=== PATIENT | female | born 1985 ===

== ENCOUNTER 2016-09-21 17:16 | Emergency (ER) | payer OTHER, SELFPAY ==
[2016-09-21 17:25] VITALS: BP 98/61; PULSE 85; RESP 18; TEMP 98.5; O2SAT 98
--- NOTE | 2016-09-21 18:37 | ED PDOC ---
HPI: Headache Time Seen by Provider: 09/21/16 17:54 Chief Complaint (Nursing): Headache Chief Complaint (Provider): Headache History Per: Patient History/Exam Limitations: no limitations Onset/Duration Of Symptoms: Hrs Current Symptoms Are (Timing): Still Present Additional Complaint(s): 17:54 Donna Mosley is a 31 year old female that presents to the ED with a chief complaint of a headache that began as a direct result of slipping in her bathtub and hitting her head. Patient states that there was no LOC, and that the pain is diffuse in the front of her head, even though she hit the back of her head. Her associated symptoms include nausea and neck pain,and states that "light bothers her." She denies any blurry vision, focal weakness, vision change , fever, neck stiffness, vomiting, difficulty walking, or consumption of alcohol. 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 Past Medical History Reviewed: Historical Data, Nursing Documentation, Vital Signs Vital Signs: Last Vital Signs Temp 98.5 F 09/21/16 17:20 Pulse 85 09/21/16 17:20 Resp 18 09/21/16 17:20 BP 98/61 L 09/21/16 17:20 Pulse Ox 98 09/21/16 17:20 - Surgical History Surgical History: (x3) - Family History Family History: States: Unknown Family Hx - Social History Current smoker - smoking cessation education provided: No - Immunization History Hx Tetanus Toxoid Vaccination: Yes Hx Influenza Vaccination: No Hx Pneumococcal Vaccination: No - Home Medications Home Medications: Ambulatory Orders Medication Instructions Recorded Magnesium Citrate [[facility] 300 ml PO ONCE PRN #1 bottle 02/13/16 Pharmacy Magnesium Citrate] Ibuprofen [Motrin Tab] 600 mg PO Q8 PRN #30 tab 09/21/16 Ondansetron ODT [Zofran ODT] 1 odt PO Q6 PRN #20 odt 09/21/16 - Allergies Allergies/Adverse Reactions: Allergies Allergy/AdvReac Type Severity Reaction Status Date / Time No Known Allergies Allergy Verified 02/13/16 16:30 Review of Systems Constitutional: Negative for: Fever, Other (no difficulty walking) Eyes: Negative for: Vision Change, Other (no focal weakness, no blurry vision) Gastrointestinal: Positive for: Nausea. Negative for: Vomiting Musculoskeletal: Positive for: Neck Pain (positibe neck pain, but no neck stiffness) Neurological: Positive for: Headache. Negative for: Other (no LOC) Physical Exam - Reviewed Nursing Documentation Reviewed: Yes Vital Signs Reviewed: Yes - Physical Exam Appears: Positive for: Non-toxic, In Acute Distress (patient is in moderate painful distress) Head Exam: Positive for: NORMOCEPHALIC. Negative for: ATRAUMATIC (TTP occiput, very subtle swelling. No hematoma or abrasion) Skin: Positive for: Warm, Dry Eye Exam: Positive for: Normal appearance, EOMI, PERRL Neck: Negative for: Normal (diffuse TTP along midline and paraspinal c-spine; no step off) Cardiovascular/Chest: Positive for: Regular Rate, Rhythm. Negative for: Murmur Respiratory: Positive for: Normal Breath Sounds, Other (equal chest rise). Negative for: Respiratory Distress Gastrointestinal/Abdominal: Positive for: Soft. Negative for: Tenderness, Distended Extremity: Positive for: Normal ROM. Negative for: Deformity Neurologic/Psych: Positive for: Alert, hoop cutter II-XII (intact), Oriented (x3), Cerebellar Tests (normal). Negative for: Motor/Sensory Deficits, Aphasia, Facial Droop - ECG O2 Sat by Pulse Oximetry: 98 (RA) Pulse Ox Interpretation: Normal Medical Decision Making Medical Decision Makin:05 Initial Impression: Head Injury, ddx include Traumatic Brain Injury vs. Concussion vs. Contusion Initial Plan: * CT Scan Cervical Spine w/o contrast * CT Scan Head w/o contrast * Urine Preg * Tylenol 975 mg PO * Zofran 4 mg IM * Patient will be given cervical collar * Reevaluation * Accession No. : [id number] Patient Name / ID : DIMITRI BLANC / [id number] Exam Date : 09/21/2016 18:50:00 ( Approved ) Study Comment : Sex / Age : F / 31Y Creator : Alexandrea Shaw MD Dictator : Industrial Designer : Muck Boss : Alexandrea Shaw MD Approver2 : Report Date : 09/21/2016 19:47:00 My Comment : [facility] Division of Radiology [address] [place] [address] Tel. no. Patient Name: DONNA MOSLEY Pt. Address: [address] [place] [address] Rec #: [id number] [place] [address]: Domenic FRAUSTO, Miriam Colin Pt Order Location: [facility] : 1985 Female Age: 31 Order #: [id number] Reason for exam: headache s/p trauma CT Scan HEAD W/O CONTRAST Exam Date: 09/21/16 This imaging exam was performed at [facility] EXAM: CT Head Without Intravenous Contrast CLINICAL HISTORY: 31 years old, female; Pain and injury or trauma; Fall; Initial encounter; Headache; Headache not specified; Additional info: Headache S/P trauma TECHNIQUE: Axial computed tomography images of the head/brain without intravenous contrast. This CT exam was performed using one or more of the following dose reduction techniques: automated exposure control, adjustment of the mA and/or kV according to patient size, and/or use of iterative reconstruction technique. Coronal and sagittal reformatted images were created and reviewed. EXAM DATE/TIME: 09/21/2016 6:04 PM COMPARISON: No relevant prior studies available. FINDINGS: LIMITATIONS: Exam is somewhat limited by mild streak/motion artifact. BRAIN:No significant acute abnormality identified. No acute hemorrhage seen within the brain. No acute extraaxial fluid collections visualized. No evidence of significant intracranial mass effect. Normal vogt-white matter differentiation. VENTRICLES: No evidence of significant hydrocephalus. BONES/JOINTS: No acute fractures or other acute bony abnormality noted. SOFT TISSUES: No acute abnormality of the visualized soft tissues is seen. SINUSES: Visualized paranasal sinuses appear clear. MASTOID AIR CELLS: Mastoid air cells appear clear. IMPRESSION: - No evidence of acute intracranial injury or fractures. - See above for remaining findings. Dictated By: Alexandrea Shaw MD Dictated Date/Time: 09/21/161946 Signed By: Alexandrea Shaw MD Date Signed: 1946 Transcribed By: DEONTE Transcribe Date/Time : 09/21/161946 RMMP02/VRD Accession No. : [id number] Patient Name / ID : DIMITRI BLANC / [id number] Exam Date : 09/21/2016 18:52:37 ( Approved ) Study Comment : Sex / Age : F / 31Y Creator : Alexandrea Shaw MD Dictator : Industrial Designer : Muck Boss : Alexandrea Shaw MD Approver2 : Report Date : 09/21/2016 19:56:00 My Comment : [facility] Division of Radiology [address] [place] [address] Tel. no. Patient Name: DONNA MOSLEY Pt. Address: [address] [place] [address] Rec #: [id number] [place] [address]: Domenic FRAUSTO, Miriam Colin Pt Order Location: [facility] : 1985 Female Age: 31 Order #: [id number] Reason for exam: heada injury and neck pain CT Scan CERVICAL SPINE W/O CONTRAST Exam Date: 09/21/16 This imaging exam was performed at [facility] EXAM: CT Cervical Spine Without Intravenous Contrast CLINICAL HISTORY: 31 years old, female; Injury or trauma; Fall; Initial encounter; Blunt trauma; Additional info: Heada injury and neck pain TECHNIQUE: Axial computed tomography images of the cervical spine without intravenous contrast. This CT exam was performed using one or more of the following dose reduction techniques: automated exposure control, adjustment of the mA and/or kV according to patient size, and/or use of iterative reconstruction technique. Coronal and sagittal reformatted images were created and reviewed. EXAM DATE/TIME: 09/21/2016 6:05 PM COMPARISON: No relevant prior studies available. FINDINGS: VERTEBRAE: No acute cervical spine fractures visualized. No evidence of significant vertebral subluxation. Normal alignment of C1 and C2 and of the facet joints. DISCS/SPINAL CANAL/NEURAL FORAMINA: Mild degenerative disc disease incidentally noted at T3-4. SOFT TISSUES: No acute abnormality of the visualized soft tissues is seen. LUNG APICES: No pneumothorax seen. IMPRESSION: - No acute cervical spine fractures identified. - See above for remaining findings. Dictated By: Alexandrea Shaw MD Dictated Date/Time: 09/21/161955 Signed By: Alexandrea Shaw MD Date Signed: 1955 Transcribed By: DEONTE Transcribe Date/Time : 09/21/161955 RMMP02/VRD Scribe Attestation: Documented by Henrietta Newman, acting as a scribe for Miriam Sheth MD. Provider Scribe Attestation: All medical record entries made by the Scribe were at my direction and personally dictated by me. I have reviewed the chart and agree that the record accurately reflects my personal performance of the history, physical exam, medical decision making, and the department course for this patient. I have also personally directed, reviewed, and agree with the discharge instructions and disposition. Disposition - Clinical Impression Clinical Impression: Concussion, Head injury Counseled Patient/Family Regarding: Studies Performed, Diagnosis, Need For Followup, Rx Given - Disposition Referrals: [facility] [Outside] - 09/24/16 Disposition: Routine/Home Disposition Time: 20:07 Condition: IMPROVED Prescriptions: Ibuprofen [Motrin Tab] 600 mg PO Q8 PRN #30 tab PRN Reason: Pain, Moderate (4-7) Ondansetron ODT [Zofran ODT] 1 odt PO Q6 PRN #20 odt PRN Reason: Nausea/Vomiting Instructions: Head Injury (ED), Concussion (ED) Forms: [facility] ED School/Work Excuse Print Language: MAORI
--- NOTE | 2016-09-21 19:48 | CT ---
EXAM: CT Head Without Intravenous Contrast CLINICAL HISTORY: 31 years old, female; Pain and injury or trauma; Fall; Initial encounter; Headache; Headache not specified; Additional info: Headache S/P trauma TECHNIQUE: Axial computed tomography images of the head/brain without intravenous contrast. This CT exam was performed using one or more of the following dose reduction techniques: automated exposure control, adjustment of the mA and/or kV according to patient size, and/or use of iterative reconstruction technique. Coronal and sagittal reformatted images were created and reviewed. EXAM DATE/TIME: 09/21/2016 6:04 PM COMPARISON: No relevant prior studies available. FINDINGS: LIMITATIONS: Exam is somewhat limited by mild streak/motion artifact. BRAIN:No significant acute abnormality identified. No acute hemorrhage seen within the brain. No acute extraaxial fluid collections visualized. No evidence of significant intracranial mass effect. Normal vogt-white matter differentiation. VENTRICLES: No evidence of significant hydrocephalus. BONES/JOINTS: No acute fractures or other acute bony abnormality noted. SOFT TISSUES: No acute abnormality of the visualized soft tissues is seen. SINUSES: Visualized paranasal sinuses appear clear. MASTOID AIR CELLS: Mastoid air cells appear clear. IMPRESSION: - No evidence of acute intracranial injury or fractures. - See above for remaining findings.
--- NOTE | 2016-09-21 19:57 | CT ---
EXAM: CT Cervical Spine Without Intravenous Contrast CLINICAL HISTORY: 31 years old, female; Injury or trauma; Fall; Initial encounter; Blunt trauma; Additional info: Heada injury and neck pain TECHNIQUE: Axial computed tomography images of the cervical spine without intravenous contrast. This CT exam was performed using one or more of the following dose reduction techniques: automated exposure control, adjustment of the mA and/or kV according to patient size, and/or use of iterative reconstruction technique. Coronal and sagittal reformatted images were created and reviewed. EXAM DATE/TIME: 09/21/2016 6:05 PM COMPARISON: No relevant prior studies available. FINDINGS: VERTEBRAE: No acute cervical spine fractures visualized. No evidence of significant vertebral subluxation. Normal alignment of C1 and C2 and of the facet joints. DISCS/SPINAL CANAL/NEURAL FORAMINA: Mild degenerative disc disease incidentally noted at T3-4. SOFT TISSUES: No acute abnormality of the visualized soft tissues is seen. LUNG APICES: No pneumothorax seen. IMPRESSION: - No acute cervical spine fractures identified. - See above for remaining findings.
== END 2016-09-21 21:15 | disposition home or self-care (01) ==
LOC: H.ER 17:16
DX: S06.0X0A Concussion without loss of consciousness, initial encounter (principal); W19.XXXA Unspecified fall, initial encounter; Y92.002 Bathroom of unspecified non-institutional (private) residence as the place of occurrence of the external cause; M54.2 Cervicalgia; R51 Headache; R11.0 Nausea